=== PATIENT | female | born 1985 | race African-American/Black ===

== ENCOUNTER 2024-12-31 03:57 | Inpatient (IN) | payer OTHER ==
[~2024-12-31] VITALS: Ht 170.2 cm; Wt 86.7 kg
[2024-12-31 05:05] LABS: BASOPHILS # (AUTO) 0.1 K/uL (0.0-0.2); BASOPHILS % (AUTO) 0.5 % (0.0-2.0); EOSINOPHILS # (AUTO) 0.1 K/uL (0.0-0.7); EOSINOPHILS % (AUTO) 1.2 % (0.0-6.0); HEMATOCRIT 29 % (33-45); HEMOGLOBIN 9.3 g/dL (11.5-14.8); LYMPHOCYTES # (AUTO) 2.2 K/uL (0.8-4.8); LYMPHOCYTES % (AUTO) 19.9 % (20.0-44.0); MEAN CORPUSCULAR HEMOGLOBIN 28 PG (26.0-33.0); MEAN CORPUSCULAR HGB CONC 32 g/dl (31.0-36.0); MEAN CORPUSCULAR VOLUME 88 fL (82-100); MONOCYTES # (AUTO) 1.1 K/uL (0.1-1.30); MONOCYTES % (AUTO) 10.3 % (2.0-12.0); NEUTROPHILS # (AUTO) 7.5 K/uL (1.8-8.9); NEUTROPHILS % (AUTO) 68.1 % (43.0-81.0); PLATELET COUNT (AUTO) 288 K/uL (150-450); RED BLOOD CELL COUNT(AUTO) 3.32 MIL/uL (4.0-5.2); WHITE BLOOD COUNT (AUTO) 11.1 K/uL (4.3-11.0)
[2024-12-31 05:19] LABS: INR 0.97 (0.91-1.10); PROTHROMBIN TIME 10.3 SECS (9.2-11.1)
[2024-12-31 06:23] LABS: ALBUMIN 2.5 g/dL (3.4-5.0); BILIRUBIN,DIRECT 0.1 mg/dL (0.0-0.2); BILIRUBIN,TOTAL 0.3 mg/dL (0.2-1.0); CREATININE 5.1 mg/dL (0.6-1.3)
[2024-12-31 06:29] LABS: POTASSIUM 6.3 mmol/L (3.5-5.1)
[2024-12-31] MEDS ORDERED: FUROSEMIDE 40 MG/4 ML VIAL ONE (06:48)
[2024-12-31] MEDS ORDERED: SODIUM BICARBONATE SYR 50 MEQ/50 ML DISP.SYRIN ONE (06:49)
[2024-12-31] MEDS ORDERED: CALCIUM CHLORIDE 1,000 MG/10 ML DISP.SYRIN ONE (06:49)
[2024-12-31] MEDS ORDERED: SODIUM ZIRCONIUM CYCLOSILICATE 10 GM POWD.PACK ONE ×2 (06:49→07:44)
[2024-12-31] MEDS: CALCIUM CHLORIDE 1,000 MG/10 ML DISP.SYRIN IV ONE (06:57)
[2024-12-31] MEDS: FUROSEMIDE 40 MG/4 ML VIAL IV ONE (06:58)
[2024-12-31] MEDS: SODIUM BICARBONATE SYR 50 MEQ/50 ML DISP.SYRIN IV ONE (06:58)
[2024-12-31] MEDS: IV NS 0.9% 1,000 ML BAG IV ONE (06:58)
[2024-12-31] MEDS: SODIUM ZIRCONIUM CYCLOSILICATE 10 GM POWD.PACK PO ONE (07:30)
[2024-12-31 07:31] VITALS: O2SAT 97
[2024-12-31] MEDS: ALBUTEROL FS 2.5 MG/3 ML VIAL.NEB NEB ONE (07:31)
[2024-12-31] MEDS ORDERED: ALBUTEROL FS 2.5 MG/3 ML VIAL.NEB ONE (07:32)
[2024-12-31] MEDS ORDERED: MAG HYDROX/AL HYDROX/SIMETH 30 ML UDC PO PRN (08:00)
[2024-12-31] MEDS ORDERED: ONDANSETRON HCL/PF 4 MG/2 ML VIAL IVP PRN (08:00)
[2024-12-31] MEDS ORDERED: MAGNESIUM HYDROXIDE 30 ML UDC PO PRN (08:00)
[2024-12-31] MEDS ORDERED: ACETAMINOPHEN 325 MG TABLET PO PRN (08:00)
[2024-12-31] MEDS ORDERED: LOSA50TA39 GT (08:01)
[2024-12-31] MEDS ORDERED: AMLO10TA4 GT (08:01)
[2024-12-31] MEDS ORDERED: BISO5TAB20 GT (08:01)
[2024-12-31] MEDS ORDERED: NA P133E RC (08:01)
[2024-12-31] MEDS ORDERED: ASPI-1169 GT (08:01)
[2024-12-31] MEDS ORDERED: PROTEIN LIQUID GT (08:01)
[2024-12-31] MEDS ORDERED: POLY17PO4 GT (08:01)
[2024-12-31] MEDS ORDERED: CYAN500T9 GT (08:01)
[2024-12-31] MEDS ORDERED: SPIR50TA5 GT (08:01)
[2024-12-31] MEDS ORDERED: ATOR80TA GT (08:01)
[2024-12-31] MEDS ORDERED: IPRA3AMP22 IH (08:01)
[2024-12-31] MEDS ORDERED: MAGN400O6 GT (08:01)
[2024-12-31] MEDS ORDERED: ASCO500L2 GT (08:01)
[2024-12-31] MEDS ORDERED: ACET-2030 GT ×2 (08:01)
[2024-12-31] MEDS ORDERED: INSU100V39 SQ (08:01)
[2024-12-31] MEDS ORDERED: BISA10SU11 RC (08:01)
[2024-12-31] MEDS ORDERED: CARV25TA GT (08:01)
[2024-12-31] MEDS ORDERED: NUT.237L30 GT (08:01)
[2024-12-31] MEDS ORDERED: FOLI0.8T2 GT (08:01)
[2024-12-31] MEDS ORDERED: ACET-868 GT (08:01)
[2024-12-31] MEDS ORDERED: ZINC454O5 TP (08:02)
[2024-12-31 08:34] VITALS: O2SAT 97
[2024-12-31] MEDS: IV 1/2NS 1000 ML 1,000 ML IV PRN (13:03)
[2024-12-31 16:13] VITALS: BP 117/69; TEMP 98.4; O2SAT 98
[2024-12-31 16:29] LABS: CALCIUM, SERUM 11.9 mg/dL (8.5-10.1); CREATININE 5.1 mg/dL (0.6-1.3); POTASSIUM 5.7 mmol/L (3.5-5.1)
[2024-12-31] MEDS: IV NS 0.9% 1,000 ML BAG IV PRN (18:28)
[2024-12-31] MEDS: SODIUM ZIRCONIUM CYCLOSILICATE 10 GM POWD.PACK PO SCH (19:00)
[2024-12-31 20:00] VITALS: BP 127/81; TEMP 98.4; O2SAT 100
[2025-01-01] VITALS: BP_SYST 116; BP_SYST 124; BP_DIAS 80; BP_DIAS 81; TEMP 98.2; O2SAT 97; O2SAT 99
[2025-01-01] MEDS ORDERED: DEXTROSE 50%-WATER 50 ML DISP.SYRIN IV PRN
[2025-01-01] MEDS: BLOOD SUGAR DIAGNOSTIC 1 EACH STRIP IN SCH (01:02)
[2025-01-01 07:31] LABS: BASOPHILS % (AUTO) 0.3 % (0.0-2.0); EOSINOPHILS % (AUTO) 0.6 % (0.0-6.0); HEMATOCRIT 23 % (33-45); LYMPHOCYTES # (AUTO) 0.9 K/uL (0.8-4.8); LYMPHOCYTES % (AUTO) 13.1 % (20.0-44.0); MEAN CORPUSCULAR HEMOGLOBIN 29 PG (26.0-33.0); MEAN CORPUSCULAR HGB CONC 34 g/dl (31.0-36.0); MEAN CORPUSCULAR VOLUME 85 fL (82-100); MONOCYTES # (AUTO) 0.8 K/uL (0.1-1.30); MONOCYTES % (AUTO) 11.6 % (2.0-12.0); NEUTROPHILS # (AUTO) 5.1 K/uL (1.8-8.9); NEUTROPHILS % (AUTO) 74.4 % (43.0-81.0); PLATELET COUNT (AUTO) 294 K/uL (150-450); RED BLOOD CELL COUNT(AUTO) 2.75 MIL/uL (4.0-5.2); RED CELL DISTRIBUTION WIDTH 15.6 % (11.5-15.0); WHITE BLOOD COUNT (AUTO) 6.8 K/uL (4.3-11.0)
[2025-01-01 08:00] VITALS: BP 122/77; TEMP 96.4; O2SAT 97
[2025-01-01] MEDS: ASPIRIN 81 MG TAB.CHEW GT SCH (08:55)
[2025-01-01] MEDS: CARVEDILOL 12.5 MG TABLET GT SCH (08:55)
[2025-01-01] MEDS: AMLODIPINE BESYLATE 10 MG TABLET GT SCH (08:55)
[2025-01-01] MEDS: HEPARIN SODIUM, PORCINE 5000 UNITS/1 ML VIAL SQ SCH (08:56)
[2025-01-01] MEDS: INSULIN REGULAR, HUMAN 100 UNIT/ML 3 ML VIAL SQ PRN (11:48)
[2025-01-01] MEDS: BISOPROLOL FUMARATE 5 MG TABLET GT SCH (13:12)
[2025-01-01 16:00] VITALS: BP 110/70; TEMP 98.8; O2SAT 97
[2025-01-01 18:14] LABS: ALBUMIN 2.3 g/dL (3.4-5.0); BILIRUBIN,TOTAL 0.4 mg/dL (0.2-1.0); CREATININE 3.9 mg/dL (0.6-1.3); MAGNESIUM 2.8 mg/dL (1.8-2.4); PHOSPHORUS 5.3 mg/dL (2.5-4.9); POTASSIUM 4.7 mmol/L (3.5-5.1); TOTAL PROTEIN, SERUM 8.3 g/dL (6.4-8.2)
[2025-01-01] MEDS: THERAHONEY GEL 1.5 OZ TUBE TP SCH (18:31)
[2025-01-01 20:20] VITALS: BP 119/74; TEMP 99.1; O2SAT 99
[2025-01-01] MEDS: IV D5/0.45 NACL 1,000 ML IV SCH (23:34)
[2025-01-02 00:42] VITALS: BP 119/74; TEMP 99.1; O2SAT 99
[2025-01-02 04:06] LABS: HEPATITIS B SURFACE AB Non Reactive (.)
[2025-01-02 07:06] LABS: PTH, INTACT 14 pg/mL (15-65)
[2025-01-02 07:22] LABS: CALCIUM, SERUM 9.4 mg/dL (8.5-10.1); CREATININE 2.5 mg/dL (0.6-1.3); POTASSIUM 3.5 mmol/L (3.5-5.1)
[2025-01-02 07:23] LABS: BASOPHILS # (AUTO) 0.1 K/uL (0.0-0.2); BASOPHILS % (AUTO) 1.1 % (0.0-2.0); EOSINOPHILS # (AUTO) 0.1 K/uL (0.0-0.7); EOSINOPHILS % (AUTO) 1.1 % (0.0-6.0); HEMATOCRIT 25 % (33-45); HEMOGLOBIN 8.2 g/dL (11.5-14.8); LYMPHOCYTES # (AUTO) 0.7 K/uL (0.8-4.8); LYMPHOCYTES % (AUTO) 15.4 % (20.0-44.0); MEAN CORPUSCULAR HEMOGLOBIN 28 PG (26.0-33.0); MEAN CORPUSCULAR HGB CONC 33 g/dl (31.0-36.0); MEAN CORPUSCULAR VOLUME 86 fL (82-100); MONOCYTES # (AUTO) 0.6 K/uL (0.1-1.30); MONOCYTES % (AUTO) 12.9 % (2.0-12.0); NEUTROPHILS # (AUTO) 3.3 K/uL (1.8-8.9); NEUTROPHILS % (AUTO) 69.5 % (43.0-81.0); PLATELET COUNT (AUTO) 260 K/uL (150-450); RED CELL DISTRIBUTION WIDTH 15.5 % (11.5-15.0); WHITE BLOOD COUNT (AUTO) 4.7 K/uL (4.3-11.0)
[2025-01-02 08:00] VITALS: BP 109/80; TEMP 99.1; O2SAT 98
[2025-01-02 09:08] LABS: COMPLEMENT C3, SERUM 153 mg/dL (82-167); COMPLEMENT C4, SERUM 32 mg/dL (12-38)
[2025-01-02 12:07] LABS: *ANA ANTI-CENTROMERE B AB 0.6 AI (0.0-0.9); *ANA ANTI-DNA(DS) AB, QN <1 IU/mL (0-9); *ANA ANTI-JO-1 <0.2 AI (0.0-0.9); *ANA ANTICHROMATIN ANTIBODY <0.2 AI (0.0-0.9); *ANA RNP ANTIBODIES 0.4 AI (0.0-0.9); *ANA SJOGREN'S ANTI-SS-A <0.2 AI (0.0-0.9); *ANA SJOGREN'S ANTI-SS-B <0.2 AI (0.0-0.9); *ANAANTI-SCLERODERMA-70 AB <0.2 AI (0.0-0.9); *ANASMITH AB <0.2 AI (0.0-0.9)
[2025-01-02] MEDS: NEPRO 1,000 ML BOTTLE GT SCH (12:10)
[2025-01-02] MEDS: PROSOURCE / PROSTAT (PYXIS) 30 ML UDC GT SCH (12:10)
[2025-01-02 16:00] VITALS: BP 117/76; TEMP 97.6; O2SAT 98
[2025-01-02 20:00] VITALS: BP 110/66; TEMP 98.8; O2SAT 100
[2025-01-02 21:41] VITALS: BP 110/66; TEMP 98.8; O2SAT 100
[2025-01-03 07:00] VITALS: BP 122/77; TEMP 97.3; O2SAT 99
[2025-01-03 09:32] LABS: BASOPHILS % (AUTO) 0.3 % (0.0-2.0); EOSINOPHILS # (AUTO) 0.1 K/uL (0.0-0.7); EOSINOPHILS % (AUTO) 1.3 % (0.0-6.0); HEMATOCRIT 24 % (33-45); HEMOGLOBIN 7.9 g/dL (11.5-14.8); LYMPHOCYTES % (AUTO) 14.7 % (20.0-44.0); MEAN CORPUSCULAR HEMOGLOBIN 28 PG (26.0-33.0); MEAN CORPUSCULAR HGB CONC 33 g/dl (31.0-36.0); MEAN CORPUSCULAR VOLUME 86 fL (82-100); MONOCYTES # (AUTO) 0.7 K/uL (0.1-1.30); MONOCYTES % (AUTO) 11.6 % (2.0-12.0); NEUTROPHILS # (AUTO) 4.6 K/uL (1.8-8.9); NEUTROPHILS % (AUTO) 72.1 % (43.0-81.0); PLATELET COUNT (AUTO) 262 K/uL (150-450); RED BLOOD CELL COUNT(AUTO) 2.78 MIL/uL (4.0-5.2); WHITE BLOOD COUNT (AUTO) 6.4 K/uL (4.3-11.0)
[2025-01-03 09:41] LABS: CREATININE 2.9 mg/dL (0.6-1.3); POTASSIUM 3.4 mmol/L (3.5-5.1)
[2025-01-03 16:00] VITALS: BP 117/71; TEMP 98.2; O2SAT 99
[2025-01-03 20:00] VITALS: BP 120/74; TEMP 97.9; O2SAT 100
[2025-01-03 20:47] VITALS: BP 120/74; TEMP 97.9; O2SAT 100
[2025-01-04 07:02] LABS: BASOPHILS % (AUTO) 0.2 % (0.0-2.0); EOSINOPHILS # (AUTO) 0.1 K/uL (0.0-0.7); EOSINOPHILS % (AUTO) 1.6 % (0.0-6.0); HEMATOCRIT 25 % (33-45); HEMOGLOBIN 8.5 g/dL (11.5-14.8); LYMPHOCYTES # (AUTO) 0.8 K/uL (0.8-4.8); LYMPHOCYTES % (AUTO) 17.2 % (20.0-44.0); MEAN CORPUSCULAR HEMOGLOBIN 29 PG (26.0-33.0); MEAN CORPUSCULAR HGB CONC 34 g/dl (31.0-36.0); MEAN CORPUSCULAR VOLUME 86 fL (82-100); MONOCYTES # (AUTO) 0.4 K/uL (0.1-1.30); MONOCYTES % (AUTO) 9.4 % (2.0-12.0); NEUTROPHILS # (AUTO) 3.2 K/uL (1.8-8.9); NEUTROPHILS % (AUTO) 71.6 % (43.0-81.0); PLATELET COUNT (AUTO) 269 K/uL (150-450); RED BLOOD CELL COUNT(AUTO) 2.94 MIL/uL (4.0-5.2); RED CELL DISTRIBUTION WIDTH 15.1 % (11.5-15.0); WHITE BLOOD COUNT (AUTO) 4.5 K/uL (4.3-11.0)
[2025-01-04 08:00] VITALS: BP 119/73; TEMP 99; O2SAT 100
[2025-01-04 08:00] LABS: CALCIUM, SERUM 10.9 mg/dL (8.5-10.1); POTASSIUM 3.5 mmol/L (3.5-5.1)
[2025-01-04] MEDS ORDERED: METO25TA6 PO (09:06)
[2025-01-04 14:09] LABS: *SPE A/G RATIO 0.5 (0.7-1.7); *SPE ALBUMIN 2.4 g/dL (2.9-4.4); *SPE ALPHA-1-GLOBULIN 0.5 g/dL (0.0-0.4); *SPE ALPHA-2-GLOBULIN 1.5 g/dL (0.4-1.0); *SPE BETA GLOBULIN 1.4 g/dL (0.7-1.3); *SPE GLOBULIN, TOTAL 5.2 g/dL (2.2-3.9); *SPE M-SPIKE Not Observed g/dL (Not Observed); *SPE PROTEIN TOTAL 7.6 g/dL (6.0-8.5); *SPEGAMMA GLOBULIN 1.8 g/dL (0.4-1.8)
[2025-01-04 16:00] VITALS: BP 115/75; TEMP 98.4; O2SAT 100
[2025-01-04] MEDS: IV D5/0.45 NACL 1,000 ML IV PRN (19:09)
[2025-01-04 20:00] VITALS: BP 119/76; TEMP 97.3; O2SAT 100
[2025-01-05 05:07] LABS: HEPATITIS B CORE AB, IgM Negative (Negative); HEPATITIS B CORE AB, TOTAL Negative (Negative); HEPATITIS B SURFACE AB Non Reactive (.)
[2025-01-05 08:04] VITALS: BP 120/70; TEMP 97.7; O2SAT 96
[2025-01-05 08:43] LABS: BASOPHILS % (AUTO) 0.2 % (0.0-2.0); EOSINOPHILS # (AUTO) 0.2 K/uL (0.0-0.7); EOSINOPHILS % (AUTO) 2.5 % (0.0-6.0); HEMATOCRIT 25 % (33-45); LYMPHOCYTES % (AUTO) 15.8 % (20.0-44.0); MEAN CORPUSCULAR HEMOGLOBIN 28 PG (26.0-33.0); MEAN CORPUSCULAR HGB CONC 33 g/dl (31.0-36.0); MEAN CORPUSCULAR VOLUME 86 fL (82-100); MONOCYTES # (AUTO) 0.6 K/uL (0.1-1.30); MONOCYTES % (AUTO) 9.2 % (2.0-12.0); NEUTROPHILS # (AUTO) 4.6 K/uL (1.8-8.9); NEUTROPHILS % (AUTO) 72.3 % (43.0-81.0); PLATELET COUNT (AUTO) 296 K/uL (150-450); RED BLOOD CELL COUNT(AUTO) 2.89 MIL/uL (4.0-5.2); RED CELL DISTRIBUTION WIDTH 14.9 % (11.5-15.0); WHITE BLOOD COUNT (AUTO) 6.3 K/uL (4.3-11.0)
[2025-01-05 09:12] LABS: ALBUMIN 1.9 g/dL (3.4-5.0); BILIRUBIN,TOTAL 0.2 mg/dL (0.2-1.0); CALCIUM, SERUM 10.2 mg/dL (8.5-10.1); CREATININE 2.8 mg/dL (0.6-1.3); MAGNESIUM 2.4 mg/dL (1.8-2.4); PHOSPHORUS 3.5 mg/dL (2.5-4.9); POTASSIUM 3.3 mmol/L (3.5-5.1); TOTAL PROTEIN, SERUM 7.5 g/dL (6.4-8.2)
[2025-01-05] MEDS ORDERED: POTASSIUM CHLORIDE 20 MEQ TAB.PRT.SR PO ONE (12:30)
[2025-01-05] MEDS: POTASSIUM CHLORIDE 20 MEQ POWDER PACKET GT ONE (13:12)
[2025-01-05 16:57] VITALS: BP 114/76; TEMP 97.8; O2SAT 95
[2025-01-05 17:59] LABS: APPEARANCE,URINE CLOUDY (CLEAR); BILIRUBIN,URINE NEGATIVE (NEGATIVE); BLOOD, URINE 2+ Ery/uL (NEGATIVE); COLOR,URINE YELLOW (YELLOW); KETONES,URINE NEGATIVE (NEGATIVE); LEUKOCYTE ESTERASE ,URINE 3+ (NEGATIVE); NITRITE, URINE NEGATIVE (NEGATIVE); PH,URINE 6.5 (5.0-8.0); PROTEIN,URINE 1+ mg/dl (NEGATIVE); UGLUCOSE 1+ mg/dL (NEGATIVE); UROBILINOGEN,URINE 0.2 EU/dL (0.2)
[2025-01-05 18:20] LABS: ADD URINE CULTURE YES; BACTERIA,URINE Many /HPF (None Seen)
[2025-01-05 18:21] LABS: SQUAMOUS EPITHELIAL CELL,UR Moderate /HPF (None Seen)
[2025-01-05 18:25] LABS: FINE GRANULAR CASTS,URINE Rare /LPF (None Seen); URINE TOTAL PROTEIN 124.4 mg/dL (0-11.9)
[2025-01-05 18:26] LABS: TRIPLE PHOSPHATE CRYSTAL,UR Few /HPF (None Seen)
[2025-01-05 18:27] LABS: URINE AMORPHOUS PHOSPHATES Many /HPF (None Seen)
[2025-01-05 18:28] LABS: MUCUS,URINE Rare /LPF (None Seen)
[2025-01-05 20:00] VITALS: BP_SYST 84; BP_SYST 96; BP_DIAS 43; BP_DIAS 55; TEMP 98.4; O2SAT 100
[2025-01-05 20:22] LABS: EOSINOPHIL,URINE None Seen
[2025-01-06 07:00] VITALS: BP 119/54; TEMP 99; O2SAT 100
[2025-01-06 07:50] LABS: BASOPHILS % (AUTO) 0.3 % (0.0-2.0); EOSINOPHILS # (AUTO) 0.1 K/uL (0.0-0.7); EOSINOPHILS % (AUTO) 2.4 % (0.0-6.0); HEMATOCRIT 23 % (33-45); HEMOGLOBIN 7.7 g/dL (11.5-14.8); LYMPHOCYTES # (AUTO) 0.8 K/uL (0.8-4.8); LYMPHOCYTES % (AUTO) 14.5 % (20.0-44.0); MEAN CORPUSCULAR HEMOGLOBIN 29 PG (26.0-33.0); MEAN CORPUSCULAR HGB CONC 34 g/dl (31.0-36.0); MEAN CORPUSCULAR VOLUME 86 fL (82-100); MONOCYTES # (AUTO) 0.5 K/uL (0.1-1.30); MONOCYTES % (AUTO) 8.7 % (2.0-12.0); NEUTROPHILS # (AUTO) 3.9 K/uL (1.8-8.9); NEUTROPHILS % (AUTO) 74.1 % (43.0-81.0); PLATELET COUNT (AUTO) 305 K/uL (150-450); RED BLOOD CELL COUNT(AUTO) 2.66 MIL/uL (4.0-5.2); RED CELL DISTRIBUTION WIDTH 14.9 % (11.5-15.0); WHITE BLOOD COUNT (AUTO) 5.3 K/uL (4.3-11.0)
[2025-01-06 08:06] LABS: ALBUMIN 1.8 g/dL (3.4-5.0); BILIRUBIN,TOTAL 0.2 mg/dL (0.2-1.0); CALCIUM, SERUM 10.6 mg/dL (8.5-10.1); CREATININE 2.8 mg/dL (0.6-1.3); MAGNESIUM 2.4 mg/dL (1.8-2.4); PHOSPHORUS 3.3 mg/dL (2.5-4.9); POTASSIUM 3.8 mmol/L (3.5-5.1); TOTAL PROTEIN, SERUM 7.1 g/dL (6.4-8.2)
[2025-01-06 13:30] VITALS: BP 116/63; TEMP 98.1; O2SAT 96
[2025-01-06 16:00] VITALS: BP 113/67; TEMP 97.9; O2SAT 96
[2025-01-06 20:00] VITALS: BP 113/89; TEMP 98.1; O2SAT 98
[2025-01-07 07:00] VITALS: BP 126/75; TEMP 98.6; O2SAT 97
[2025-01-07 07:14] LABS: BASOPHILS % (AUTO) 0.4 % (0.0-2.0); EOSINOPHILS # (AUTO) 0.1 K/uL (0.0-0.7); EOSINOPHILS % (AUTO) 2.9 % (0.0-6.0); HEMATOCRIT 22 % (33-45); HEMOGLOBIN 7.3 g/dL (11.5-14.8); LYMPHOCYTES % (AUTO) 20.5 % (20.0-44.0); MEAN CORPUSCULAR HEMOGLOBIN 29 PG (26.0-33.0); MEAN CORPUSCULAR HGB CONC 34 g/dl (31.0-36.0); MEAN CORPUSCULAR VOLUME 85 fL (82-100); MONOCYTES # (AUTO) 0.4 K/uL (0.1-1.30); MONOCYTES % (AUTO) 7.5 % (2.0-12.0); NEUTROPHILS # (AUTO) 3.3 K/uL (1.8-8.9); NEUTROPHILS % (AUTO) 68.7 % (43.0-81.0); PLATELET COUNT (AUTO) 348 K/uL (150-450); RED BLOOD CELL COUNT(AUTO) 2.55 MIL/uL (4.0-5.2); RED CELL DISTRIBUTION WIDTH 14.9 % (11.5-15.0); WHITE BLOOD COUNT (AUTO) 4.8 K/uL (4.3-11.0)
[2025-01-07 07:43] LABS: CALCIUM, SERUM 11.6 mg/dL (8.5-10.1); CREATININE 2.5 mg/dL (0.6-1.3); POTASSIUM 4.1 mmol/L (3.5-5.1)
[2025-01-07 16:00] VITALS: BP 122/77; TEMP 97.5; O2SAT 98
[2025-01-07 20:00] VITALS: BP 122/73; TEMP 98.2; O2SAT 100
[2025-01-08] MEDS: NEPRO 1,000 ML BOTTLE GT SCH (04:22)
[2025-01-08 08:00] VITALS: BP 132/80; TEMP 97.7; O2SAT 99
[2025-01-08] MEDS: Z GUARD REMEDY 4 OZ OINT TP PRN (08:27)
[2025-01-08 11:55] LABS: PREGNANCY TEST URINE QUAL NEGATIVE (NEGATIVE)
[2025-01-08 11:57] LABS: BASOPHILS % (AUTO) 0.4 % (0.0-2.0); EOSINOPHILS # (AUTO) 0.1 K/uL (0.0-0.7); EOSINOPHILS % (AUTO) 2.4 % (0.0-6.0); HEMATOCRIT 22 % (33-45); HEMOGLOBIN 7.2 g/dL (11.5-14.8); LYMPHOCYTES # (AUTO) 0.9 K/uL (0.8-4.8); MEAN CORPUSCULAR HEMOGLOBIN 29 PG (26.0-33.0); MEAN CORPUSCULAR HGB CONC 34 g/dl (31.0-36.0); MEAN CORPUSCULAR VOLUME 85 fL (82-100); MONOCYTES # (AUTO) 0.4 K/uL (0.1-1.30); NEUTROPHILS # (AUTO) 3.4 K/uL (1.8-8.9); NEUTROPHILS % (AUTO) 70.2 % (43.0-81.0); PLATELET COUNT (AUTO) 346 K/uL (150-450); RED BLOOD CELL COUNT(AUTO) 2.53 MIL/uL (4.0-5.2); RED CELL DISTRIBUTION WIDTH 15.2 % (11.5-15.0); WHITE BLOOD COUNT (AUTO) 4.9 K/uL (4.3-11.0)
[2025-01-08 12:06] LABS: CALCIUM, SERUM 12.1 mg/dL (8.5-10.1); CREATININE 2.6 mg/dL (0.6-1.3)
[2025-01-08 16:00] VITALS: BP 104/60; TEMP 99; O2SAT 97
== END 2025-01-08 16:00 | DRG 469 ==
LOC: ER 04:11 → TELE 10:30 → MED 01-01 05:59
PROVIDERS: ADMIT Internal Medicine; ATTEND Internal Medicine
PROC: 5A1D70Z Performance of Urinary Filtration, Intermittent, Less than 6 Hours Per Day (ICD-10-PCS; 2024-12-31)
PROC: 06HY33Z Insertion of Infusion Device into Lower Vein, Percutaneous Approach (ICD-10-PCS; 2025-01-01)
PROC: 0JBQ0ZZ Excision of Right Foot Subcutaneous Tissue and Fascia, Open Approach (ICD-10-PCS; principal; 2025-01-04)
DX: N17.0 Acute kidney failure with tubular necrosis (principal); G93.49 Other encephalopathy; D68.59 Other primary thrombophilia; L89.613 Pressure ulcer of right heel, stage 3; E11.22 Type 2 diabetes mellitus with diabetic chronic kidney disease; D63.8 Anemia in other chronic diseases classified elsewhere; E83.9 Disorder of mineral metabolism, unspecified; E87.5 Hyperkalemia; E86.9 Volume depletion, unspecified; I12.9 Hypertensive chronic kidney disease with stage 1 through stage 4 chronic kidney disease, or unspecified chronic kidney disease; N18.9 Chronic kidney disease, unspecified; Z93.1 Gastrostomy status; E78.5 Hyperlipidemia, unspecified; R13.10 Dysphagia, unspecified; E11.40 Type 2 diabetes mellitus with diabetic neuropathy, unspecified; Z74.09 Other reduced mobility; E83.52 Hypercalcemia; Z86.73 Personal history of transient ischemic attack (TIA), and cerebral infarction without residual deficits
CPT/HCPCS: 36415; 71045-TC; 76770-TC; 80048-TC; 80053-TC; 80076-TC; 81001; 82550-TC; 82553; 82570-TC; 82962-TC; 83735-TC; 83970; 84100-TC; 84155; 84165; 84300-TC; 84703-TC; 85025-TC; 85652-TC; 85730-TC; 86225; 86235; 86704; 86705; 86706; 86803; 86850-TC; 87086-TC; 87340; 90935-TC; 93307-TC; A4223; A6403; G0378; J1644; J1815; J1940; J3490; J7030

== ENCOUNTER 2025-04-27 11:35 | Emergency (ER) | payer OTHER ==
[~2025-04-27] VITALS: Ht 170.2 cm; Wt 93.0 kg
[~2025-04-27 11:35] MED LIST: ACET-2030 GT; ACET-868 GT; AMLO10TA4 GT; ASCO500L2 GT; ASPI-1169 GT; ATOR80TA GT; BISA10SU11 RC; BISO5TAB20 GT; CARV25TA GT; CYAN500T9 GT; FOLI0.8T2 GT; INSU100V39 SQ; IPRA3AMP22 IH; MAGN400O6 GT; METO25TA6 PO; NA P133E RC; NUT.237L30 GT; POLY17PO4 GT; PROTEIN LIQUID GT; ZINC454O5 TP
[2025-04-27] MEDS ORDERED: ACET160L44 GT (12:26)
[2025-04-27] MEDS ORDERED: AMIN30LI2 GT (12:26)
[2025-04-27] MEDS ORDERED: CRAN3875 GT (12:26)
[2025-04-27] MEDS ORDERED: CLON0.5T4 GT (12:26)
[2025-04-27] MEDS ORDERED: LACT-96 GT (12:26)
[2025-04-27] MEDS ORDERED: METO5SOL GT (12:26)
[2025-04-27] MEDS ORDERED: CLON0.1T GT (12:26)
[2025-04-27] MEDS ORDERED: BACL10TA GT (12:26)
[2025-04-27] MEDS ORDERED: EPOE4000 SQ (12:26)
[2025-04-27 14:10] VITALS: BP 121/84; TEMP 97.8; O2SAT 98
== END 2025-04-27 14:13 ==
LOC: ER 11:39
DX: S00.81XA Abrasion of other part of head, initial encounter (principal); I12.9 Hypertensive chronic kidney disease with stage 1 through stage 4 chronic kidney disease, or unspecified chronic kidney disease; E11.22 Type 2 diabetes mellitus with diabetic chronic kidney disease; N18.9 Chronic kidney disease, unspecified; E78.5 Hyperlipidemia, unspecified; G93.49 Other encephalopathy; Z79.4 Long term (current) use of insulin; Z79.82 Long term (current) use of aspirin; Z79.899 Other long term (current) drug therapy; W06.XXXA Fall from bed, initial encounter; Y93.89 Activity, other specified; Y92.092 Bedroom in other non-institutional residence as the place of occurrence of the external cause; Y99.8 Other external cause status
CPT/HCPCS: 70450-TC